=== PATIENT | female | born 1955 | race Two or more races ===

== ENCOUNTER 2016-08-27 22:21 | Emergency (ER) | payer OTHER ==
[~2016-08-27] VITALS: Ht 175.3 cm; Wt 63.5 kg
[~2016-08-27 22:21] MED LIST: AFRIN NASAL SPR30 ML NASAL; BACTROBAN NASAL1 GM NASAL; CIPRO500 MG PO; COLACE100 MG ORAL; IBUPROFEN600 MG ORAL; NEO SYNEPHRI NASAL; NKM; NORCO 5-325 TA1 EACH ORAL; TRAMADOL HCL50 MG ORAL
[2016-08-27] MEDS ORDERED: ALBUTEROL SULF8.5 GM INH (22:42)
[2016-08-27] MEDS ORDERED: PREDNISONE20 MG ORAL (22:42)
--- NOTE | 2016-08-27 22:43 | Emergency Room Report ---
History of Present Illness General Chief Complaint: Upper Respiratory Illness Source: Patient Present Illness HPI This is a 61-year-old female who had a history of asthma as a kid. Currently he did not take any medication. She presents with chief complaint of coughing congestion. Also with tightness in her lungs. Worse with inspiration. She said the homeless people behind her apartment smoking and when she walked by it makes her breathing worse. Denies any fever chills denies any nausea vomiting. No other complaint. Onset for one and a half day. Allergies: Coded Allergies: PEANUT (Verified Allergy, Unknown, 12/02/15) Patient History Past Medical History: see triage record, old chart reviewed Past Surgical History: none Pertinent Family History: none Social History: Denies: smoking Now: No Immunizations: other Reviewed Nursing Documentation: PMH: Agreed, PSxH: Agreed Review of Systems Eye: Denies: blurred vision, eye pain ENT: Denies: ear pain, nose congestion, throat swelling Respiratory: Reports: cough, shortness of breath Cardiovascular: Denies: chest pain, palpitations Gastrointestinal: Denies: abdominal pain, diarrhea, nausea, vomiting Musculoskeletal: Denies: back pain, joint pain Skin: Denies: rash Neurological: Denies: headache, numbness Endocrine: Denies: increased thirst, increased urine Hematologic/Lymphatic: Denies: easy bruising All Other Systems: negative except mentioned in HPI Physical Exam Vital Signs Date Time Temp Pulse Resp B/P Pulse Ox O2 Delivery O2 Flow Rate FiO2 08/27/16 22:23 98.2 73 16 146/75 96 Room Air vitals normal Sp02 EP Interpretation: reviewed, normal General Appearance: well appearing, no apparent distress, alert Head: normocephalic, atraumatic Eyes: bilateral eye EOMI, bilateral eye PERRL ENT: hearing grossly normal, normal pharynx Neck: full range of motion, supple, no meningismus Respiratory: chest non-tender, lungs clear, normal breath sounds, other - Coughing with inspiration Cardiovascular #1: regular rate, rhythm, no murmur Gastrointestinal: normal bowel sounds, non tender, no mass, no organomegaly, no bruit, non-distended Musculoskeletal: back normal, gait/station normal, normal range of motion Psychiatric: mood/affect normal Skin: warm/dry Medical Decision Making Diagnostic Impression: Primary Impression: Bronchitis, acute, with bronchospasm ER Course Patient present with a bronchitis with bronchospasm. No evidence of ACS, PE, dissection to name a few. No evidence of pneumonia. We'll treat symptomatically. No need for antibiotics. Last Vital Signs Date Time Temp Pulse Resp B/P Pulse Ox O2 Delivery O2 Flow Rate FiO2 08/27/16 22:23 98.2 73 16 146/75 96 Room Air Status: improved Disposition: HOME, SELF-CARE Condition: Stable Scripts Prednisone* (PREDNISONE*) 20 Mg Tablet 40 MG ORAL DAILY, #8 TAB Prov: MONICA DIMAS M.D. 08/27/16 Albuterol Sulfate* (ALBUTEROL SULFATE MDI*) 8.5 Gm Hfa.aer.ad 2 PUFF INH Q4H Y for cough/wheezing, #1 EA 0 Refills Prov: MONICA DIMAS M.D. 08/27/16 Additional Instructions: Followup with your DrHerbert in 7 days. Return if symptom worsen. MONICA DIMAS M.D. Aug 27, 2016 22:43
[2016-08-27 22:45] VITALS: BP 146/75
[2016-08-27] MEDS ORDERED: Albuterol ud Inhalation HHN ONE (22:45)
[2016-08-27] MEDS ORDERED: PredniSONE 20mg tab ORAL ONE (22:45)
[2016-08-27 22:55] VITALS: BP 146/75
== END 2016-08-27 22:55 | disposition home or self-care (01) ==
LOC: EMR 22:52
DX: J20.9 Acute bronchitis, unspecified (principal); Z91.010 Allergy to peanuts
CPT/HCPCS: 94640; 99284